=== PATIENT | male | born 2000 | race Caucasian/White ===

== ENCOUNTER 2018-05-25 23:49 | Emergency (ER) | payer OTHER ==
[~2018-05-25] VITALS: Ht 180.3 cm; Wt 63.5 kg
[~2018-05-25 23:49] MED LIST: ACET325 PO; Baclofen10 MG PO; Excedrin Extra1 EACH; IBUP400 PO; IBUP600 PO; Naprosyn375 MG PO; PENVK500 PO
== END 2018-05-26 00:59 | disposition home or self-care (01) ==
LOC: ER 23:49
DX: J02.8 Acute pharyngitis due to other specified organisms (principal); B96.89 Other specified bacterial agents as the cause of diseases classified elsewhere; F17.290 Nicotine dependence, other tobacco product, uncomplicated
CPT/HCPCS: 96372; 99283-25; J0561; J1100

== ENCOUNTER → 2018-06-22 | Outpatient (CLI) | payer OTHER | END | disposition home or self-care (01) | LOC: LAB EV 13:51 → LAB SHORT 13:51 | DX: J03.90 Acute tonsillitis, unspecified (principal) | CPT/HCPCS: 87070; 87147 ==